=== PATIENT | male | born 1960 | race Caucasian/White ===

== ENCOUNTER 2021-12-19 11:57 | Emergency (ER) | payer BC ==
[~2021-12-19] VITALS: Ht 172.7 cm; Wt 81.8 kg
--- NOTE | 2021-12-19 12:36 | NUR ---
Arrived to ER for level 1 stroke alert.
[2021-12-19 12:45] LABS: APTT 23 SECONDS (22-32)
[2021-12-19 12:46] LABS: ALANINE AMINOTRANSFERASE 28 U/L (12-78); ALBUMIN/GLOBULIN RATIO 1.2 (1.1-1.5); ALKALINE PHOSPHATASE 80 IU/L (46-116); ANION GAP 7 (8-16); ASPARTATE AMINO TRANSFERASE 23 U/L (10-37); BILIRUBIN,TOTAL 0.6 MG/DL (0.1-1.0); BLOOD UREA NITROGEN 9 MG/DL (7-18); BUN/CREATININE RATIO 9.8 (5.4-32.0); CALCIUM 8.9 MG/DL (8.5-10.1); CHLORIDE 104 MMOL/L (99-107); CREATININE 0.92 MG/DL (0.60-1.10); GLUCOSE 95 MG/DL (70-104); POTASSIUM 3.9 MMOL/L (3.5-5.1); SODIUM 138 MMOL/L (135-145); TOTAL CARBON DIOXIDE 26.9 MMOL/L (24-32); TOTAL PROTEIN 7.4 G/DL (6.4-8.2); eGFR 84 ML/MIN
[2021-12-19 13:19] LABS: BASOPHILS % (AUTO) 0.4 % (0-1); EOSINOPHILS # (AUTO) 0.1 X10'3 (0-0.9); EOSINOPHILS % (AUTO) 1.2 % (0-6); HEMATOCRIT 42.7 % (42.0-52.0); LYMPHOCYTES # (AUTO) 1.2 X10'3 (1.1-4.8); LYMPHOCYTES % (AUTO) 13.5 % (21-51); MEAN CORPUSCULAR HEMOGLOBIN 33.5 PG (27.0-31.0); MEAN CORPUSCULAR HGB CONC 35.1 g/dL (33.0-36.5); MEAN CORPUSCULAR VOLUME 95.6 FL (78-98); MEAN PLATELET VOLUME 8.2 FL (7.4-10.4); MONOCYTES # (AUTO) 0.5 X10'3 (0-0.9); NEUTROPHILS # (AUTO) 7.4 X10'3 (1.8-7.7); NEUTROPHILS % (AUTO) 79.9 % (42-75); PLATELET COUNT 194 X10'3 (140-440); RED BLOOD COUNT 4.47 X10'6 (4.70-6.10); RED CELL DISTRIBUTION WIDTH 12.5 % (11.5-14.5); WHITE BLOOD COUNT 9.3 X10'3 (4.5-11.0)
--- NOTE | 2021-12-19 13:45 | NUR ---
Telemedicine evaluation done after getting verbal consent for telemedicine from patient. She thinks he has transglobal amnesia event. She recommends a mri of brain and I will talk to the er doctor to see if they are ordering it here or recommend he follows up out patient with a primary md.
--- NOTE | 2021-12-19 14:02 | NUR ---
I spoke to Quique the nurse covering for Vin and told her that I talked to Dr. Garcia and he is ordering an mri of brain before patient can go home to rule out anything else. I informed the patient of the plan too.
[2021-12-19 15:59] VITALS: BP 140/91
== END 2021-12-19 16:02 | disposition home or self-care (01) ==
LOC: ER 11:58
DX: G45.4 Transient global amnesia (principal)
CPT/HCPCS: 36415; 70450; 70551; 71045; 80053; 82948; 85025; 85610; 85730; 86885; 86900; 86901; 93005; 99285

== ENCOUNTER 2023-06-02 10:12 | Emergency (ER) | payer BC ==
[~2023-06-02] VITALS: Ht 172.7 cm; Wt 81.9 kg
[2023-06-02 10:37] VITALS: BP 135/81; PULSE 60; TEMP 98.3; O2SAT 97
[2023-06-02] MEDS: cyclobenzaprine 10mg tablet PO ONE (11:50)
[2023-06-02] MEDS ORDERED: CYCL-1 PO (12:10)
[2023-06-02] MEDS ORDERED: PRED20TA PO (12:10)
[2023-06-02] MEDS ORDERED: LIDO700A32 TOP (12:10)
[2023-06-02] MEDS: ondansetron 4mg rapidly disintigrating tab PO ONE (12:51)
[2023-06-02 12:53] VITALS: RESP 16
[2023-06-02] MEDS: HYDROcodone/acetaminophen 5mg/325mg tablet PO ONE (12:53)
[2023-06-02] MEDS: ketorolac trometh inj. 60 MG/2 ML VIAL IM ONE (12:53)
[2023-06-02] MEDS: dexamethasone sod phosphate 10mg/ml inj IM STA (12:54)
== END 2023-06-02 13:21 | disposition home or self-care (01) ==
LOC: ER 10:12
DX: S29.019A Strain of muscle and tendon of unspecified wall of thorax, initial encounter (principal); M54.59 Other low back pain; Z87.442 Personal history of urinary calculi; Z79.899 Other long term (current) drug therapy; X58.XXXA Exposure to other specified factors, initial encounter; Y93.89 Activity, other specified; Y92.89 Other specified places as the place of occurrence of the external cause; Y99.8 Other external cause status
CPT/HCPCS: 72100; 96372; 99284; J1100; J1885

== ENCOUNTER 2023-11-10 08:44 | Emergency (ER) | payer BC ==
[~2023-11-10] VITALS: Ht 172.7 cm; Wt 79.0 kg
[~2023-11-10 08:44] MED LIST: CYCL-1 PO; LIDO700A32 TOP
[2023-11-10] MEDS ORDERED: DEXAMETHASONE 6 MG TABLET PO SCH (10:15)
[2023-11-10] MEDS ORDERED: cetirizine 10mg tablet PO SCH (10:15)
[2023-11-10] MEDS: DEXAMETHASONE 6 MG TABLET PO ONE (10:47)
[2023-11-10] MEDS: cetirizine 10mg tablet PO ONE (10:48)
[2023-11-10 11:03] VITALS: BP 147/81; PULSE 89; RESP 18; TEMP 98.5; O2SAT 96
== END 2023-11-10 11:07 | disposition home or self-care (01) ==
LOC: ER 08:45
DX: R05.9 Cough, unspecified (principal); R09.81 Nasal congestion; Z79.899 Other long term (current) drug therapy
CPT/HCPCS: 71046; 99283; J8540